=== PATIENT | female | born 1990 | race Caucasian/White ===

== ENCOUNTER → 2019-03-14 | Outpatient (CLI) | payer BC ==
--- NOTE | 2019-03-14 17:06 | Diagnostic Imaging Report ---
Examination: MRI SPINE CERVICAL WITHOUT CONTRAST History: Neck pain; weakness. Comparison studies: None Technique: Sagittal T1, T2 and IR, axial T2 and axial gradient echo intravenous contrast: None Findings: Alignment: Straightening of normal lordosis. No scoliosis. Cervicomedullary junction: No abnormalities. Patent foramen magnum. Soft tissues: No T2 hyperintense inflammatory changes. Spinal cord: Normal in size and signal from the foramen magnum through T1. Vertebrae: No fractures, infection or neoplasm. Degenerative changes: C1-C2 through C3-C4: No abnormalities. C4-C5: Mild diffuse disc osteophyte complex. No foraminal or canal stenosis. C5-C6: Diffuse disc osteophyte complex. No foraminal or canal stenosis. C6-C7: Diffuse disc osteophyte complex. No foraminal or canal stenosis. C7-T1: No abnormalities. IMPRESSION: Mild degenerative changes from C4-C5 through C6-C7 without canal or foraminal stenosis. Signed by: Dr. Racheal Ledbetter M.D. on 03/14/2019 5:03 PM
== END ==
LOC: MRI 08:37
PROVIDERS: ATTEND Specialist
DX: M54.2 Cervicalgia (principal); S16.1XXA Strain of muscle, fascia and tendon at neck level, initial encounter; R53.1 Weakness
CPT/HCPCS: 72141; 81025